=== PATIENT | female | born 2000 | race Asian ===

== ENCOUNTER 2022-05-08 14:04 | Emergency (ER) | payer OTHER ==
[~2022-05-08] VITALS: Ht 154.9 cm; Wt 59.1 kg
[2022-05-08 14:17] VITALS: BP 107/67
[2022-05-08 14:46] LABS: COVID AG,FIA SOURCE NASOPHARYNGEAL
[2022-05-08] MEDS ORDERED: ACETAMINOPHEN 325 MG TABLET PO ONE (15:00)
[2022-05-08] MEDS ORDERED: IBUPROFEN 400 MG TABLET PO ONE (15:00)
[2022-05-08 15:12] LABS: INFLUENZA TYPE A NEGATIVE FOR TYPE A (NEGATIVE); INFLUENZA TYPE B NEGATIVE FOR TYPE B (NEGATIVE)
== END 2022-05-08 15:39 | disposition home or self-care (01) ==
LOC: EMS 14:06
DX: U07.1 COVID-19 (principal)
CPT/HCPCS: 87804; 99283

== ENCOUNTER 2024-01-24 12:30 | Emergency (ER) | payer OTHER ==
[~2024-01-24] VITALS: Ht 157.5 cm; Wt 60.0 kg
[2024-01-24 13:03] VITALS: BP 109/67; PULSE 78; RESP 16; TEMP 98.9
[2024-01-24 13:49] LABS: COVID AG,FIA SOURCE NASAL SWAB
[2024-01-24 14:13] LABS: INFLUENZA TYPE A NEGATIVE FOR TYPE A (NEGATIVE); INFLUENZA TYPE B NEGATIVE FOR TYPE B (NEGATIVE)
[2024-01-24 14:15] LABS: SARS-COV2 (COVID) ANTIGEN,FIA Positive (Negative)
== END 2024-01-24 15:26 | disposition home or self-care (01) ==
LOC: EMS 12:30
DX: U07.1 COVID-19 (principal)
CPT/HCPCS: 87804; 99283